=== PATIENT | female | born 1995 | race Caucasian/White ===

== ENCOUNTER 2022-02-08 08:10 | Inpatient (IN) | payer MEDICAID, SELFPAY ==
[2022-02-08] VITALS (50 sets, daily range): BP systolic 120–181; BP diastolic 67–100; PULSE 56–86; RESP 16–22; TEMP 36.2–37.1; O2SAT 97–100; BMI 50.1
[2022-02-08] MEDS: 0.9% Saline Lock 10 ML Syringe IV (08:30)
--- NOTE | 2022-02-08 08:47 | PCM.HP.OB ---
HPI - General General Date of Admission: 02/08/22 Date of Service: 02/08/22 Chief Complaint: failure to progress in labor HPI Narrative LISA ESTEVEZ, is a 27 F at 41w2d who presents from home with her relay record clerk after being 8-9 cm for 24 hours. She reports she was laboring at home and progressed to 8 cm about 24 hours ago. The relay record clerk reports clear fluid and no bleeding. Ctx's q 4 min. She has had care with the relay record clerk in the , but she has had no labs or GBS. The relay record clerk states she had an ultrasound around 20 weeks that was normal. The internet media planner reports a possible elevated blood pressure at some point in the , but she is uncertain of the blood pressure and at what gestational age. She says she is Rh negative, and her is as well. Maternal Data Information Final SHELL: 01/30/22 PFSH PFSH Home Medications [id number] 1 mg tablet 1 tab PO DAILY 02/08/22 [History Last Taken 02/07/22 08:00 1 tab] Allergy/AdvReac Type Severity Reaction Status Date / Time No Known Allergies Allergy Verified 02/08/22 09:21 History Addt'l History: No records NST FHR Rate Baby A Baseline: 135 Variability:: Moderate Accelerations:: 15 x 15 Decelerations:: Variable Uterine Activity:: ctx q 4 min Vital Signs Vital Signs Vital Signs: 02/08/22 08:35 02/08/22 08:35 Pulse Rate 72 Blood Pressure 152/93 H BP Systolic 152 BP Diastolic 93 Physical Exam Const alert and no apparent distress General Appearance: comfortable HEENT normocephalic GI soft to palpation and non-tender Narrative: Cvx 8/80/-1, cephalic, cannot assess presentation given caput Labs Labs Labs: Blood Type Pending Antibody Screen Pending Hct 35.7 % (37-47) L Hgb 12.2 g/dL (12.0-15.0) Syphilis Total Ab Pending Rubella IgG Antibody Pending Hep Bs Antigen Pending HIV 1&2 Antibody Pending Group B Strep DNA Pending Assessment & Plan (1) 41 weeks gestation of : PLAN: - EDC per internet media planner. No records of dating ultrasound (2) Primiparous: (3) Obesity affecting : PLAN: - Patient has had no diabetes screening. Will check random blood sugar and hgb a1c (4) Failure to progress in labor: PLAN: - Patient has been 8 cm for 24 hours. Contractions q 4 min. Light meconium on exam. Recommend section given failure to progress in labor. Discussed r/b/a to a section. Patient requested time to discuss plan of care with her internet media planner and . They considered getting an epidural to see if she would make cervical change after the epidural, which given patient is afebrile and FHT reassuring I discussed that is an alternative option. After discussion the patient requests to proceed with a section. Discussed r/b/a to a section and consent obtained to proceed. Reviewed risk of hemorrhage, need for a blood transfusion, and infection given she has been laboring. (5) No care in current : PLAN: - panel on admission and GBS. (6) Rh negative status during : (7) Elevated blood pressure reading: PLAN: - BP severe range on admission and returned to mild range. No IV antihypertensives indicated at this time. Discussed concern for gHTN or pre eclampsia. She has no pre eclampsia symptoms. Check pre e labs. Discussed with patient she may need mag gtt if she has persistent severe range BP's or if she develops severe symptoms of pre e for seizure prophylaxis.
[2022-02-08 09:10] LABS: Absolute Lymphocyte Count 0.87 X10^3/uL (0.83-4.51); Absolute Neutrophil Count 19.3 X10^3/uL (2.0-7.7); Basophil# 0.04 X10^3/uL; Basophil% 0.2 % (0-1); Eosinophil# 0.01 X10^3/uL; Hematocrit 35.7 % (37-47); Hemoglobin 12.2 g/dL (12.0-15.0); Lymphocyte # 0.87 X10^3/ul (0.83-4.51); Mean Corp Hgb Conc 34.2 g/dL (32-36); Mean Corpuscular Hgb 29.8 pg (27.0-32.0); Mean Corpuscular Volume 87.1 fL (81-99); Mean Platelet Vol. 11.5 fl (6.2-12.0); Monocyte# 1.23 X10^3/uL; Monocyte% 5.7 % (0-10); NRBC Flagged by Analyzer 0 % (0-5); Neutrophil # 19.33 X10^3/uL (2.7-7.7); Neutrophil % 89.2 % (47-70); Platelet Count 187 K/mm3 (150-450); RBC Distribution Width SD 43.9 fl (35.1-43.9); White Blood Count 21.7 K/mm3 (4.4-11.0)
[2022-02-08 09:23] LABS: ALB/GLOB Ratio 0.7 RATIO (0.9-2.4); AST(SGOT) 21 U/L (15-37); Alanine Aminotransfer ALT/SGPT 20 U/L (13-56); Albumin, Serum 2.7 g/dL (3.2-5.0); Alkaline Phosphatase 104 U/L (45-117); Anion Gap 11 (5-15); BUN 14 mg/dL (7-18); BUN/Creat Ratio 18.2 RATIO (10-20); Chloride 107 mmol/L (98-107); Creatinine, Serum 0.77 mg/dL (0.55-1.02); EST Glomerular Filtration Rate 96 mL/min (>60); Est Glom Filt Rate - Afr Amer 116 mL/min (>60); Estimated Creatinine Clearance 87.57 ml/min; Globulin 3.8 g/dL (2.2-4.2); Glucose 109 mg/dL (74-106); Potassium 3.9 mmol/L (3.5-5.1); Protein, Total 6.5 g/dL (6.4-8.2); Sodium Level 135 mmol/L (136-145); Uric Acid 7.7 mg/dL (2.6-6.0)
[2022-02-08] MEDS: Lactated Ringers 1,000 ML 999 ML IV (09:25)
[2022-02-08 09:34] LABS: Partial Thromboplast Time 27.9 Seconds (24.1-36.2); Prothrombin Time (Protime)PT. 12.7 SECONDS (11.7-14.9)
[2022-02-08 09:37] LABS: Hemoglobin A1c 5.5 % (3.8-5.6)
[2022-02-08] MEDS: Acetaminophen 500 MG Tablet 1000 MG PO ×3 (09:40→22:28)
[2022-02-08] MEDS: Sodium Citrate/Citric Acid 30 ML UDC PO (09:44)
[2022-02-08 09:52] LABS: Rubella IgG Non-Reactive (Nonreactive); Syphilis Antibodies Non-reactive
[2022-02-08] MEDS: Lactated Ringers 1,000 ML 150 ML IV (10:00)
[2022-02-08 10:10] LABS: HIV - WCH Non-Reactive (Nonreactive); Hepatitis B Surface Antigen Non-Reactive (Nonreactive); Hepatitis C Antibody Non-Reactive (Nonreactive)
[2022-02-08 10:17] LABS: Protein, Urine (Random) 74.7 mg/dL (<11.9); Protein:Creat Ratio 447 mg/g CRE (0-200)
[2022-02-08 10:48] LABS: Group B Strep DNA By PCR Negative (Negative); Internal Control PASS; Probe Check PASS; Specimen Processing Control PASS
--- NOTE | 2022-02-08 11:24 | PCM.OPRPT ---
Report of Operation Date of Procedure: 02/08/22 Pre-Operative Diagnosis: 41 week gestation, single IUP, failure to progress in labor, suspected macrosomia, suspected undiagnosed GDM, limited care, obesity with BMI 50, pre eclampsia Post-Operative Diagnosis: As above Surgery/Procedure Performed:: PLTCS via pfannenstiel incision Description of Surgical Findings:: VMI weighing 9 lb 7 oz. Normal uterus and bilateral adnexa. Normal placenta with 3 VC. Apgars 8, 9. Surgeon: Carli Stauffer ranch hand livestock: Kasandra Chiang Type of Anesthesia: Spinal Special Medications: None Specimen's removed: Placenta Drains: [place] Estimated Blood Loss (mL): 600 Fluids Replaced: 2500 Description of Procedure: Indications: 27 y/o who presents at 41 weeks and 3 days from home after laboring with her solar project manager. She has been 8 cm for 24 hours. Light meconium stained fluid noted. She is having contractions every 3 to 4 minutes. Blood pressure was elevated on admission. Protein creatinine ratio was also elevated. Fasting blood sugar was elevated on admission, BMI 50, and she had no GDM screening. Given failure to progress with regular ctx pattern, suspected macrosomia, suspected undiagnosed gestational diabetes, a section was recommended. The patient desired to proceed with a section. Procedure: She was taken to the operating room where spinal anesthesia was found to be adequate. She was prepped and draped in the dorsal position with leftward tilt. A Pfannenstiel skin incision was made using a scalpel, this was carried down to the underlying layer of fascia. The fascia was incised in midline. The fascia was extended laterally using Acevedo scissors. The fascia was dissected off the rectus muscles using a combination of sharp and blunt dissection. The rectus muscles were in the midline. The peritoneum was entered sharply with good visualization of the bladder. The peritoneal incision was extended bluntly. A bladder blade was inserted. A low transverse incision was made on the uterus with a scalpel. Uterine incision was extended bluntly. The head was flexed and elevated out of the maternal pelvis. A vigorous, viable male was delivered easily without any force or delay through the hysterotomy. The cord was clamped and cut after slight delay. The was handed off to the awaiting nursery staff. The placenta was removed with manual extraction. The uterus was cleared of all clot and debris. The uterus was exteriorized. The uterine incision was closed with 1-0 Vicryl in a running locked fashion. A second imbricating layer was performed using 1-0 Vicryl. The uterus was placed back into the abdomen. Homero was placed over the lower uterine segment and hysterotomy. Hemostasis was noted. The peritoneum was unable to be closed as it was not able to be well approximated. The fascia was closed with strata fix in a running fashion. The subcutaneou space was irrigated and made hemostatic with Bovie cautery. Subcutaneous space was reapproximated 3-0 Vicryl. The skin was closed with Monocryl in a subcuticular fashion. A silver dressing was placed. Instrument, sharp, sponge counts were correct. The patient was taken to the recovery room in stable condition. Kasandra NOBLES was present for the entire procedure: draping patient, delivery of infant, and closure. Grafts/Implants Used: None Procedure Start Time: 10:27 Procedure Stop Time: 11:20 Complications None Admit VTE Documentation VTE Present on Admission: No VTE Mechan Device Prophylaxis: SCD's
--- NOTE | 2022-02-08 11:31 | PCM.NY.DEL ---
Delivery Attendance Service Date: 02/08/22 Physical Exam Apgars/Vital Signs/Weight: Weight: 124.4 kg General Weight: 124.4 kg
[2022-02-08] MEDS: Oxytocin 30 units/NS 500 ml 30 UNITS/500 ML IV.SOLN 167 UNITS IV (11:45)
[2022-02-08] MEDS: Ketorolac 30 MG/ML Syringe IV ×2 (12:21→17:52)
[2022-02-08 12:28] LABS: Chlamydia Trachomatis by PCR Negative (Negative); Neisserai gonorrhoeae by PCR Negative (Negative); Probe Check PASS; Sample Adequacy Control PASS; Specimen Processing Control PASS
[2022-02-08] MEDS: Lactated Ringers 1,000 ML 100 ML IV (14:56)
[2022-02-08] MEDS: Enoxaparin 40 MG/0.4 ML Syringe SC (22:28)
[2022-02-09] VITALS (9 sets, daily range): BP systolic 125–138; BP diastolic 74–82; PULSE 76–101; RESP 18; TEMP 36.3–36.7; O2SAT 93–98
[2022-02-09] MEDS: 0.9% Saline Lock 10 ML Syringe IV (00:26)
[2022-02-09] MEDS: Ketorolac 30 MG/ML Syringe IV ×2 (00:26→06:38)
[2022-02-09] MEDS: Acetaminophen 500 MG Tablet 1000 MG PO ×4 (04:16→22:20)
[2022-02-09 05:53] LABS: Hematocrit 31.6 % (37-47); Hemoglobin 10.7 g/dL (12.0-15.0); Mean Corp Hgb Conc 33.9 g/dL (32-36); Mean Corpuscular Hgb 30.1 pg (27.0-32.0); Mean Platelet Vol. 11.5 fl (6.2-12.0); Platelet Count 150 K/mm3 (150-450); RBC Distribution Width CV 14.4 % (11.6-14.6); RBC Distribution Width SD 46.3 fl (35.1-43.9); Red Blood Count 3.55 M/mm3 (4.2-5.4); White Blood Count 17.1 K/mm3 (4.4-11.0)
[2022-02-09 06:14] LABS: Albumin, Serum 2.1 g/dL (3.2-5.0); BUN 20 mg/dL (7-18); BUN/Creat Ratio 23.8 RATIO (10-20); Creatinine, Serum 0.84 mg/dL (0.55-1.02); EST Glomerular Filtration Rate 87 mL/min (>60); Est Glom Filt Rate - Afr Amer 105 mL/min (>60); Estimated Creatinine Clearance 80.27 ml/min; Glucose 84 mg/dL (74-106); Protein, Total 5.5 g/dL (6.4-8.2)
[2022-02-09 06:15] LABS: ALB/GLOB Ratio 0.6 RATIO (0.9-2.4); AST(SGOT) 18 U/L (15-37); Alanine Aminotransfer ALT/SGPT 15 U/L (13-56); Alkaline Phosphatase 76 U/L (45-117); Anion Gap 9 (5-15); Calcium,Total 8.3 mg/dL (8.5-10.1); Chloride 105 mmol/L (98-107); Globulin 3.4 g/dL (2.2-4.2); Potassium 4.1 mmol/L (3.5-5.1); Sodium Level 135 mmol/L (136-145)
--- NOTE | 2022-02-09 06:50 | NURSING ---
Pt educated on Rubella non - immune status and vaccine availability. Pt declined MMR vaccine. Joy, RN
[2022-02-09] MEDS: Senna/Docusate Sodium 1 Tablet PO (10:22)
[2022-02-09] MEDS: Enoxaparin 40 MG/0.4 ML Syringe SC ×2 (10:24→22:20)
--- NOTE | 2022-02-09 12:12 | PCM.PN.OB ---
Subjective Subjective Pt doing well. Denies WEBER, vision changes, upper abd pain. Leesa reg diet without N/V. Ambulating and voiding without difficulty. No CP, SOB, lightheadedness, dizziness. Lochia normal. . Objective Data Objective Data Vital Signs: Vital Signs Temp Pulse Resp BP Pulse Ox O2 Del Method 98.1 F 82 18 135/82 H 97 Room Air 02/09/22 08:44 02/09/22 08:44 02/09/22 08:44 02/09/22 08:44 02/09/22 08:44 02/09/22 08:44 Oxygen Delivery Method Room Air Weight: 274 lb 4.081 oz Body Mass Index (BMI) 50.1 Intake & Output: Intake and Output for Last 24 Hours 02/07/22 02/08/22 02/09/22 23:59 23:59 23:59 Intake Total 2896.67 / 2896.67 Output Total 580 / 580 700 / 700 Balance 2316.67 / 2316.67 -700 / -700 Lab / Micro Data Result Diagrams: 02/09/22 05:25 02/09/22 05:25 Labs: Laboratory Results - last 24 hr 02/08/22 08:35: Chlam trachomat DNA PCR Negative, N.gonorrhoeae DNA (PCR) Negative 02/09/22 05:25: WBC 17.1 H, RBC 3.55 L, Hgb 10.7 L, Hct 31.6 L, MCV 89.0, MCH 30.1, MCHC 33.9, RDW Std Deviation 46.3 H, RDW Coeff of Nayeli 14.4, Plt Count 150, MPV 11.5 02/09/22 05:25: Sodium 135 L, Potassium 4.1, Chloride 105, Carbon Dioxide 21.0, Anion Gap 9, BUN 20 H, Creatinine 0.84, Estim Creat Clear Calc 80.27, Est GFR (MDRD) Af Amer 105, Est GFR (MDRD) Non-Af 87, BUN/Creatinine Ratio 23.8 H, Glucose 84, Calcium 8.3 L, Total Bilirubin 0.50, AST 18, ALT 15, Alkaline Phosphatase 76, Total Protein 5.5 L, Albumin 2.1 L, Globulin 3.4, Albumin/Globulin Ratio 0.6 L Physical Exam Narrative Ambulating around the room Assessment & Plan (1) Pre-eclampsia: PLAN: - Discussed pre eclampsia given elevated BP on admission and elevated p/c ratio. BP's normal and no pre e symptoms currently. Continue to closely monitor. Discussed signs and symptoms of worsening pre e, and reasons to notify us. (2) Delivery by section: PLAN: - Doing well post op. Routine post op care. Likely d/c home tommorow if BP's still normal. Will need follow up in office in ~ 1 week for incision and BP check. (3) Obesity: PLAN: - Continue Lovenox.
[2022-02-09] MEDS: Ibuprofen 600 MG Tablet PO ×2 (14:02→20:00)
[2022-02-10] MEDS: Ibuprofen 600 MG Tablet PO ×2 (02:12→08:34)
[2022-02-10 02:16] VITALS: BP 141/76; PULSE 75
[2022-02-10 02:28] VITALS: BP 141/76; PULSE 98; RESP 16; TEMP 36.4
[2022-02-10] MEDS: Acetaminophen 500 MG Tablet 1000 MG PO ×2 (03:58→11:25)
[2022-02-10 07:53] VITALS: BP 123/78; PULSE 76; O2SAT 94
[2022-02-10] MEDS: Senna/Docusate Sodium 1 Tablet PO (08:34)
[2022-02-10 09:00] VITALS: BP 123/78; PULSE 74; RESP 16; TEMP 36.4; O2SAT 97
--- NOTE | 2022-02-10 10:18 | DS.PCM_ITS ---
Providers Date of Admission: 02/08/22 Primary Care Physician: Dr. Nav Wise DO Reason For Visit: PRIMARY Diagnosis Discharge Diagnosis (1) Pre-eclampsia: Status: Acute Code(s): O14.90 - Unspecified pre-eclampsia, unspecified trimester (2) Delivery by section: Status: Acute (3) Obesity: Status: Acute Code(s): E66.9 - Obesity, unspecified Medications at Discharge Home Medications [id number] 1 mg tablet 1 tab PO DAILY 02/08/22 Hospital Course Operations section Procedures None Summary of Care Provided Hospital Course: Patient here for primary section. Hospital course uneventful. Physical Exam Narrative Dressing is dry and intact Const alert and no apparent distress General Appearance: cooperative and comfortable Exam Limitations: no limitations HEENT normocephalic Eyes General Eye: normal appearance of both eyes Neck full ROM General: normal visual inspection Chest Chest: symmetrical chest wall rise Resp normal respiratory effort and normal air movement Effort and Inspection: symmetric chest movement Auscultation: clear to auscultation bilaterally Cardio regular rate and regular rhythm GI normal to inspection, nondistended, normoactive bowel sounds Back/Spine normal ROM Extremity full ROM and no calf tenderness General Extremity: normal exam except as noted Skin no rashes or lesions noted Neuro CN's II-XII intact bilaterally Psych mental status grossly normal Weight / BMI Weight Weight: 274 lb 4.081 oz Body Mass Index (BMI) 50.1 ABG / Lab / Microbiology Data Result Diagrams: 02/09/22 05:25 02/09/22 05:25 D/C Instructions Discharge Diet: No restrictions Discharge Activity: May Shower May resume sexual activity in: 6-8 weeks Weight Bearing Status: Weight bearing as tolerated Call your doctor if your incision/area has: Continuous Slow Oozing, Increased Pain/ Swelling, Foul Smelling Discharge and Swelling at the incision site Call your doctor if you observe: Fever of 101 or Higher, Inability to urinate and Uncontrolled pain Remove Dressing in: 1 week Cleanse incision/area with: Keep Dressing Clean & Dry Additional Instructions: Make an appointment with [facility] on or Thursday for dressing removal and blood pressure check. Call [phone] i Meaningful Use Info Meaningful Use Diagnoses (Choose all that apply): None applicable Discharge Plan Admission Admit Date/Time: 02/08/22 08:10 Primary Reason for Your Visit: Primary section Attending Provider: Carli Stauffer Primary Care Provider: Nav Wise Discharge Orders/Prescriptions Prescriptions: No Action 1 mg Tablet 1 tab PO DAILY Referrals / Follow Up: Nav Wise DO [Primary Care Provider] - Disposition Disposition (needs filled in before D/C Order can be placed): Home, Self Care
[2022-02-10] MEDS: Enoxaparin 40 MG/0.4 ML Syringe SC (11:25)
--- NOTE | 2022-02-15 13:47 | NURSING ---
No answer on follow up phone call, left voicemail
== END 2022-02-10 12:00 | disposition home or self-care (01) | DRG 540 ==
PROVIDERS: Admitting Provider Obstetrics & Gynecology; PCP Family Medicine; Referring Provider Obstetrics & Gynecology; Visit Provider Obstetrics & Gynecology
DX: O48.0 Post-term pregnancy (principal); O24.429 Gestational diabetes mellitus in childbirth, unspecified control; O77.0 Labor and delivery complicated by meconium in amniotic fluid; R03.0 Elevated blood-pressure reading, without diagnosis of hypertension; O99.214 Obesity complicating childbirth; E66.9 Obesity, unspecified; Z79.01 Long term (current) use of anticoagulants; Z3A.41 41 weeks gestation of pregnancy; Z37.0 Single live birth
CPT/HCPCS: 59025; 59050; 80053; 82570; 83036; 84156; 84550; 85025; 85027; 85610; 85730; 86703; 86762; 86780; 86803; 86850; 86900; 86901; 87081; 87340; 87491; 87591; 87653; 99218; J7120; A4216; G0378